=== PATIENT | male | born 1970 | race Caucasian/White ===

== ENCOUNTER → 2021-04-28 10:54 | Outpatient (CLI) | payer OTHER, SELFPAY ==
--- NOTE | 2021-04-28 11:02 | EKG12_ITS ---
Test Reason : PREOP Blood Pressure : / mmHG Vent. Rate : 064 BPM Atrial Rate : 064 BPM P-R Int : 156 ms QRS Dur : 090 ms QT Int : 384 ms P-R-T Axes : 040 012 027 degrees QTc Int : 396 ms Normal sinus rhythm Normal ECG Confirmed by DIDI GALAVIZ, ROSE ([id number]), editor dictionary FLAKO HE ([id number]) on 04/29/2021 9:34:48 AM Referred By: Steven Mcdermott Confirmed By:ROSE TOLBERT MD
== END ==
PROVIDERS: PCP Nurse Practitioner Family; Referring Provider Orthopaedic Surgery; Visit Provider Orthopaedic Surgery
DX: Z01.810 Encounter for preprocedural cardiovascular examination (principal); Z11.59 Encounter for screening for other viral diseases
CPT/HCPCS: 87635; 93005; C9803; U0005; U0003